=== PATIENT | female | born 1980 | race African-American/Black ===

== ENCOUNTER 2022-01-25 14:04 | Emergency (ER) | payer OTHER ==
[2022-01-25 14:29] VITALS: BP 142/91; TEMP 98.6; BMI 40.1
[2022-01-25] MEDS ORDERED: BEBTELOVIMAB (EUA) 175 MG/2 ML VIAL IVPUSH ONE (15:05)
[2022-01-25 17:00] VITALS: PULSE 89
== END 2022-01-25 22:21 | disposition home or self-care (01) ==
LOC: JER 14:04
PROC: 3E033NZ Introduction of Analgesics, Hypnotics, Sedatives into Peripheral Vein, Percutaneous Approach (ICD-10-PCS; principal; 2022-01-25)
DX: U07.1 COVID-19 (principal)
CPT/HCPCS: 99284-25; M0222; Q0222

== ENCOUNTER 2024-11-13 07:25 | Day surgery (SDC) | payer OTHER ==
[2024-11-11 13:36] VITALS: BMI 44.4
[2024-11-13] MEDS ORDERED: ACETAMINOPHEN 500 MG TABLET (FP) PO PRN (08:46)
[2024-11-13 09:19] VITALS: RESP 18
[2024-11-13] MEDS: LIDOCAINE HCL 1% PRESERVATIVE FREE - 30ML VIAL IJ ONE ×2 (10:06)
[2024-11-13] MEDS: IOHEXOL 180 MG/1 ML ML IJ ONE ×2 (10:08)
[2024-11-13] MEDS: DEXAMETHASONE SOD PHOSPHATE 10 MG/1 ML VIAL IVPUSH ONE ×2 (10:10)
[2024-11-13 10:31] VITALS: BP 135/76; PULSE 56; TEMP 97.5
== END 2024-11-13 11:00 | disposition home or self-care (01) ==
LOC: JASU-SURG 07:25
PROVIDERS: ATTEND Pain Medicine Pain Medicine
PROC: 3E0R3BZ Introduction of Anesthetic Agent into Spinal Canal, Percutaneous Approach (ICD-10-PCS; 2024-11-13)
PROC: 3E0R33Z Introduction of Anti-inflammatory into Spinal Canal, Percutaneous Approach (ICD-10-PCS; principal; 2024-11-13 10:30)
DX: M54.16 Radiculopathy, lumbar region (principal)
CPT/HCPCS: 76000-TC-FY; 81025; J1100